=== PATIENT | female | born 1935 | race Hispanic/Latino ===

== ENCOUNTER 2016-10-08 16:12 | Emergency (ER) | payer MEDICARE, OTHER ==
[~2016-10-08] VITALS: Ht 162.6 cm; Wt 104.5 kg
[~2016-10-08 16:12] MED LIST: ADV250INH IH; ALBU18HF INH; AMLO5TAB2 PO; ASPI81TA3 PO; ATOR40TA69 PO; CARV12.5 PO; CHOL5000 PO; CODE118S2 PO; FURO-128 PO; INSU100I SQ; INSU100I13 SUBQ; KLO1T PO; LEVO125T6 PO; LISI40TA PO; NYST1000 PO; OXYC-466 PO; RES30 PO; VENL75CA95 PO; [UNRECOGNIZED DRUG - CODE] PO
[2016-10-08 16:24] VITALS: BP 127/75; PULSE 67; RESP 20; O2SAT 97
--- NOTE | 2016-10-08 17:29 | ED.REPORT ---
HPI-General Illness Date of Service October 08, 2016 ED Provider: Kar Hernandez MD Patient is a 81 year old female with a history asthma, hemorrhoids, COPD, breast cancer (in remission), CHF, type II diabetes mellitus, GERD, hyperlipidemia and hypertension who presents to the ED with hematochezia that began this afternoon. Associated symptoms include recent bladder/bowel incontinence and abdominal pain. Patient noticed a large, quarter sized clump of blood in her stool this morning. She also reports experiencing dizziness and lightheadedness that is unchanged from baseline. Patient currently takes 1 baby aspirin every day. She denies history of colon cancer or GI bleed. She denies nausea or vomiting. Nursing Notes Stated Complaint: BLOOD IN STOOL Chief Complaint: Male Abdominal Pain Nursing Notes Reviewed: Yes Allergies: Coded Allergies: No Known Allergies (Verified , 11/16/15) Scheduled Amlodipine (Amlodipine) 5 Mg Tablet 10 MG PO DAILY Aspirin Chew (Aspirin Chew) 81 Mg Chew 81 MG PO DAILY Atorvastatin Calcium (Atorvastatin Calcium) 40 Mg Tablet 40 MG PO DAILY Carvedilol (Coreg) 12.5 Mg Tablet 12.5 MG PO BID Cholecalciferol (Vitamin D3) (Vitamin D3) 5,000 Unit Capsule 5,000 UNIT PO Q48 every other evening Clonazepam (Clonazepam) 1 Mg Tab 1.5-2 MG PO Q48 Alternate with Temazepam Fluticasone/Salmeterol (Advair 250-50 Diskus) 60 Puff/Inh Disk 1 PUFF IH BID Furosemide (Lasix) 40 Mg Tablet 40 MG PO DAILY Insulin Aspart (NovoLOG U-100 Pen) 100 Unit/Ml Insuln.pen 12-14 UNITS SQ TID- INSULIN Insulin Glargine (Lantus U100 Solostar Insulin Pen) 100 Unit/1 Ml Insuln.pen 40 UNIT SUBQ QPM-INSULIN Levothyroxine (Levothyroxine) 125 Mcg Tablet 125 MCG PO QAM Lisinopril (Lisinopril) 40 Mg Tablet 40 MG PO DAILY Nystatin (Nystatin) 100,000 Unit/1 Ml Oral.susp 100,000 UNIT PO QID Temazepam (Temazepam) 30 Mg Cap 30 MG PO Q48 Alternate with Clonazepam Venlafaxine ER (Venlafaxine ER) 75 Mg Cap.er.24h 75 MG PO QPM Scheduled PRN Albuterol Sulfate (Ventolin HFA Inhaler) 200 Puff/18 Gm Inhaler 1-2 PUFF INH Q4- 6H PRN PRN For Wheezing Promethazine/Codeine Syrup (Promethazine/Codeine Syrup) 5 Ml Syrup 5 ML PO Q4- 6H PRN PRN For Cough oxyCODONE-Acetaminophen 10-325 mg (oxyCODONE-Acetaminophen 10-325 mg) 1 Each Tablet 1 TABLET PO Q8 PRN PRN For Pain Miscellaneous Medications Guaifenesin/Dm/Pseudoephedrine (Tussin Cf Syrup) 118 Ml Syrup 400 MG PO General Time Seen by MD: 16:41 Chief Complaint Other (Bloody Stool) Hx Obtained From: Patient Arrived By: Walk-in Sudden in Onset?: No Onset Occurred: 5 - 8 hours ago Symptom Duration: 1 - 15 minutes Location: : Abdomen Quality: Aching Radiation: : Does not radiate Severity: Current: No pain currently Severity: Maximum: Moderate Associated with: Reports: Abdominal pain, Denies: Nausea, Vomiting Pertinent Negative: Pt denies other symptoms Recent Healthcare: No recent doctor visit, No recent hospitalization Past Medical History Past Medical History Bronchitis Reports: Asthma, COPD, Cancer (Breast), Congestive heart failure, Diabetes mellitus, GERD, Hyperlipidemia, Hypertension Past Surgical History Status post bladder surgery for unknown reason. Status post hysterectomy. Status post knee surgery. Smoking History Former Smoker Social History Alcohol Use: Denies alcohol use Other Social History: Good social support, Local resident Ambulatory Status Independent Review of Systems Full Review of Systems Constitutional: Denies: Chills, Fever GI: Reports: Abdominal pain, Bloody/tarry stool, Hematochezia, Denies: Nausea, Vomiting Female: Reports: Incontinence Complete sys rev & neg: except as marked. Physical Exam Vital Signs Vital Signs Date Time Temp Pulse Resp B/P Pulse Ox O2 Delivery O2 Flow Rate FiO2 10/08/16 19:59 76 16 10/08/16 16:24 36.9 67 20 127/75 97 Room Air Initial VS: Reviewed Neck: Supple, Non-tender, Full range of motion Extremities: Vascular intact, Neuro intact, No swelling, No tenderness Skin: Warm, Dry, No cyanosis Neurologic: Alert, Oriented, Nonfocal Psychiatric: Mood/affect normal, Behavior normal, Normal thought content General/Constitutional: Awake, Alert, No acute distress Head / Eyes: Atraumatic, Normocephalic, PERRL Respiratory / Chest: Atraumatic, Breath sounds NL, Breath sounds = bilat, No respiratory distress Cardiovascular: Heart rate NL, Regular rhythm, Heart sounds NL, No gallop, No murmurs, No rubs, Peripheral circulation NL Abdomen: Atraumatic, Soft, No guarding, No rebound, BS normoactive, No distention Tenderness/Guarding/Rebound: Positive: Tender LLQ..., Negative: Rigid to palpation Rectum / Perineum: Atraumatic, No fissures, Sphincter tone NL (Palpable sphincter on digital rectal exam) Rectal for Blood: Positive: Blood - occult heme + (Brown stool ) Rectum / Perineum Abnl: Positive: Hemorrhoid external, Negative: Hemorrhoid bleeding (No active bleeding ) RECTUM: No melena Interpretation & Diagnostics Lab Results Interpretation Result Diagram: 10/08/165 10/08/165 Test 10/08/16 17:45 White Blood Count 6.2th/mm3 (3.8-10.1) Red Blood Count 4.72mil/mm3 (3.90-5.20) Hemoglobin 13.8g/dL (12.0-15.6) Hematocrit 41.9% (35.0-46.0) Mean Corpuscular Volume 88.8fL (81-100) Mean Corpuscular Hemoglobin 29.2pg (27.0-35.0) Mean Corpuscular Hemoglobin Concent 32.9% (32.0-37.0) Red Cell Distribution Width 13.1% (12.3-15.4) Platelet Count 120bil/L (150-400) Neutrophils (%) (Auto) 48.4% (40-74) Lymphocytes (%) (Auto) 38.5% (14-46) Monocytes (%) (Auto) 8.1% (4-12) Eosinophils (%) (Auto) 4.3% (0-5) Basophils (%) (Auto) 0.5% (0-3) Prothrombin Time 10.3sec (8.1-12.5) Prothromb Time International Ratio 0.96ratio Sodium Level 140mEq/L (134-144) Potassium Level 3.6mEq/L (3.5-5.2) Chloride Level 102mEq/L (97-108) Carbon Dioxide Level 25mmol/L (18-29) Blood Urea Nitrogen 18mg/dL (8-27) Creatinine 1.40mg/dL (0.57-1.00) Estimat Glomerular Filtration Rate 52mL/min (>59) Glucose Level 375mg/dL (60-99) Calcium Level 8.8mg/dL (8.5-10.1) Total Bilirubin 0.5mg/dL (0.0-1.2) Aspartate Amino Transf (AST/SGOT) 31U/L (0-50) Alanine Aminotransferase (ALT/SGPT) 36U/L (0-32) Alkaline Phosphatase 127U/L (25-165) Total Protein 6.9g/dL (6.4-8.4) Albumin 3.5g/dL (3.4-5.0) Hold [place] Top Tube Received (Received) ECG Interpretation ECG Interpretation: Normal sinus rhythm at 64 bpm Normal axis Normal intervals T wave inversion in AVL and lateral leads with boarderline ST depression Compared to prior (11/16/15) - ST depression is slightly more pronounced T wave inversions are not new Time: 17:32 Interpreted by: ED physician CT Abd / Pelvis Interpretation IMPRESSION: 1. No definite acute disease process. 2. Hepatic cysts and renal cysts. 3. Atherosclerosis. 4. No free fluid or air. 5. No dilated loops of bowel. Dictated by: Aspen Solis MD, PhD on 10/08/2016 at 19:27 Study type: Abdominal CT IV contrast, Abdom CT oral contrast Re-Eval/Medical Decision Med Decision/Clinical Course Patient is a 81 year old female with a history asthma, hemorrhoids, COPD, breast cancer (in remission), CHF, type II diabetes mellitus, GERD, hyperlipidemia and hypertension who presents to the ED with hematochezia that began this afternoon. Associated symptoms include recent bladder/bowel incontinence and abdominal pain. Patient noticed a large, quarter sized clump of blood in her stool this morning. She also reports experiencing dizziness and lightheadedness that is unchanged from baseline. Patient currently takes 1 baby aspirin every day. She denies history of colon cancer or GI bleed. She denies nausea or vomiting. Here in the emergency department the patient is afebrile stable vital signs and examination as above. She has mild tenderness to palpation about the left lower quadrant. Rectal examination reveals normal brown stool that is guaiac positive and there is palpable stricturing about the rectum with DAVID. EKG Normal sinus rhythm at 64 bpm Normal axis Normal intervals T wave inversion in AVL and lateral leads with borderline ST depression Compared to prior (11/16/15) - ST depression is slightly more pronounced T wave inversions are not new CT Abd/Pelvis IMPRESSION: 1. No definite acute disease process. 2. Hepatic cysts and renal cysts. 3. Atherosclerosis. 4. No free fluid or air. 5. No dilated loops of bowel. LABS Coag normal Hct 41.9 Hyperglycemia 375 Mild acute kidney injury Creatinine 1.4 elevated from previous of 1.28 Patient remained hemodynamically stable. Reports feeling better after treatment with IV fluids. No melena or active bright red bleeding. Positive rectal bleeding is not completely clear though I wonder if she may be having bleeding as a result of her palpable stricturing of the rectal region. She may also be bleeding from internal hemorrhoids. I cannot definitively rule out other causes of bleeding such as inflammatory bowel disease or mass lesion noticed seems less likely. No evidence of diverticulitis on CT scan. Given her stability and absence of any ongoing bleeding I do not feel that admission for emergent endoscopy is indicated. She is advised to return immediately for any worsening bleeding, lightheadedness or new symptoms. She has been referred to GI and will call first thing tomorrow to arrange an appointment. Prior to discharge follow-up and return precautions were reviewed in detail with the patient as well as her family who verbalized understanding and agreement with the plan. The patient was discharged in stable condition. Time of Eval: 19:41 Patient Status: Condition improved Re-Evaluation/Progress Note: Patient is rechecked. She is informed of her results and diagnosis. All questions are addressed. She understands and agrees with the intended treatment plan. Counseled Regarding: Diagnosis, Lab results, Need for follow-up, When/why to return to ED Discharge & Departure Primary Impression: GI bleed GI bleed type/associated pathology: unspecified gastrointestinal hemorrhage type Qualified Code: K92.2 - Gastrointestinal hemorrhage, unspecified Additional Impressions: Rectal bleeding Left lower quadrant pain Stricture of anal canal Disposition: Home Discharge Condition All VS Reviewed: Yes Condition: Improved Patient Instructions: Gastrointestinal Bleeding (ED) Additional Instructions: Thank you for seeking care at the emergency room. It is difficult for us to make definitive diagnoses in the ED but we believe that you are experiencing a gastrointestinal bleed, however, your labs did not reveal significant blood loss. Our primary goal today in the ED was to evaluate you for any life-threatening conditions. Your evaluation was reassuring and your CT was negative. Call the referred GI physician tomorrow morning to set up an out patient follow up to obtain an endoscopy to help identify the cause of your symptoms. You should return to the ED immediately if you develop any increased blood in your stool, dark stool, worsening pain, lightheadedness, weakness or any other concerning signs or symptoms. Thank you for letting us partake in your care today. Referrals: Azalia Roberto PA-C (PCP) Ammon Yousif MDibaure Attestation Portions of this note were transcribed by Mari Benites. I, Dr. Hernandez personally performed the history, physical exam and medical decision-making; I reviewed and confirmed the accuracy of the information in the transcribed note. Signed by: Edgardo Jama, 10/08/161945. copies to: Azalia Roberto PA-C, Beck O MD October 08, 2016 17:29 MARI BENITES October 08, 2016 17:36
[2016-10-08 18:08] LABS: BASOPHILS % (AUTO) 0.5 % (0-3); EOSINOPHILS % (AUTO) 4.3 % (0-5); MONOCYTES % (AUTO) 8.1 % (4-12); Mean Corpuscular Hemoglobin 29.2 pg (27.0-35.0); Mean Corpuscular Volume 88.8 fL (81-100); NEUTROPHILS % (AUTO) 48.4 % (40-74); Platelet Count 120 bil/L (150-400)
[2016-10-08 18:20] LABS: INR 0.96 ratio
[2016-10-08] MEDS ORDERED: 0.9% Sodium Chloride 1,000 ML IV ONE (19:15)
--- NOTE | 2016-10-08 19:34 | DRSVH ---
PROCEDURE: CT ABDOMEN AND PELVIS WITH CONTRAST ([id number]) INDICATIONS: LLQ pain, bloody stool, diverticulitis? TECHNIQUE: After the administration of intravenous contrast, 5 mm thick sections acquired from the diaphragm to the symphysis. 5 mm coronal and sagittal reformats were acquired. For radiation dose reduction, the following was used: automated exposure control, adjustment of mA and/or kV according to patient tyler looney. COMPARISON: [facility] [place], CT, ABD/PELVIS W/O CON (PNL), 06/11/2014, 19:13. FINDINGS: Image quality: Excellent. ABDOMEN: Lung bases: Lung bases are clear. Heart size is normal. Mitral annulus calcifications noted. Bilate ral breast implants noted. Solid organs: Liver and spleen are normal in size and enhancement. Hepatic cysts are stable. Gallbla dder is contracted. Biliary system is non dilated. Pancreas enhances normally. No adrenal nodules. Kidneys demonstrate normal size and enhancement, without hydronephrosis. Bilateral renal cysts are noted. Peritoneum and bowel: Bowel loops demonstrate normal wall thickness and caliber. No free fluid or a ir. The appendix is not definitely visualized, however no inflammatory changes noted adjacent to the cecum. Nodes and vessels: No retroperitoneal or mesenteric adenopathy by size criteria. Aorta and inferior vena cava are normal in size. Scattered atherosclerotic calcifications are noted in the abdominal an d pelvic vasculature. Miscellaneous: No ventral hernias. PELVIS: Genitourinary: Bladder wall thickness is normal. Miscellaneous: No adenopathy. Small bilateral fat containing inguinal hernia is noted. Bones: No suspicious bony lesions. No vertebral body compression fractures. Spine degenerative dise ase and facet arthropathy noted. IMPRESSION: 1. No definite acute disease process. 2. Hepatic cysts and renal cysts. 3. Atherosclerosis. 4. No free fluid or air. 5. No dilated loops of bowel. Dictated by: Aspen Solis MD, PhD on 10/08/2016 at 19:27 Approved by: Aspen Solis MD, PhD on 10/08/2016 at 19:32
[2016-10-08 19:59] VITALS: PULSE 76; RESP 16
[2016-10-25] MEDS ORDERED: AMLO5TAB2 PO (10:09)
[2016-10-25] MEDS ORDERED: ASPI-973 PO (10:09)
[2016-10-25] MEDS ORDERED: CLOT135C TP (10:12)
[2016-10-25] MEDS ORDERED: GABA-500 PO (10:12)
[2016-10-25] MEDS ORDERED: ALBU90AE IH (10:15)
[2016-10-25] MEDS ORDERED: PREG75CA PO (10:15)
[2016-10-25] MEDS ORDERED: METO100T3 PO (10:15)
[2016-10-25] MEDS ORDERED: LIDO700A33 TOPICAL (10:15)
== END 2016-10-08 20:00 | disposition home or self-care (01) ==
LOC: SED 16:12
DX: K92.2 Gastrointestinal hemorrhage, unspecified (principal); R10.32 Left lower quadrant pain; K62.4 Stenosis of anus and rectum; R42 Dizziness and giddiness; J44.9 Chronic obstructive pulmonary disease, unspecified; I50.9 Heart failure, unspecified; E11.9 Type 2 diabetes mellitus without complications; K21.9 Gastro-esophageal reflux disease without esophagitis; E78.5 Hyperlipidemia, unspecified; I10 Essential (primary) hypertension; J45.909 Unspecified asthma, uncomplicated; K64.9 Unspecified hemorrhoids; Z85.3 Personal history of malignant neoplasm of breast; Z87.891 Personal history of nicotine dependence; Z79.4 Long term (current) use of insulin; Z79.82 Long term (current) use of aspirin
CPT/HCPCS: 36415; 74177; 80053; 85025; 85610; 86850; 93005; 96360; 99285; J7030; Q9967

== ENCOUNTER 2016-10-26 07:23 | Day surgery (SDC) | payer MEDICARE, OTHER ==
[~2016-10-26] VITALS: Ht 162.6 cm; Wt 104.3 kg
[~2016-10-26 07:23] MED LIST changes: -ADV250INH IH; -ALBU18HF INH; +ALBU90AE IH; +ASPI-973 PO; -CARV12.5 PO; +CLOT135C TP; -CODE118S2 PO; -FURO-128 PO; +GABA-500 PO; -KLO1T PO; +LIDO700A33 TOPICAL; +METO100T3 PO; -NYST1000 PO; -OXYC-466 PO; +PREG75CA PO; -RES30 PO; -[UNRECOGNIZED DRUG - CODE] PO
[2016-10-26] MEDS ORDERED: MeTOProlol 1 mg/mL 5 mL Inj ONE (07:24)
[2016-10-26] MEDS ORDERED: Ketamine 10 mg/mL 20 mL Inj ONE (07:24)
[2016-10-26] MEDS ORDERED: Glycopyrrolate 0.2 MG/ML 1mL Inj ONE (07:24)
[2016-10-26] MEDS ORDERED: Lactated Ringer's 1,000 ML IV ONE (07:31)
[2016-10-26 07:42] VITALS: BP 181/80; PULSE 78; RESP 16; O2SAT 96
[2016-10-26] MEDS ORDERED: KLO1T PO (07:49)
[2016-10-26] MEDS ORDERED: Lactated Ringer's 1,000 ML IV SCH (08:04)
--- NOTE | 2016-10-26 08:54 | PCM.ENDEGD ---
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 Scope introduced esophagus. Esophagus showed normal shiny whitish mucosa consistent with squamous cell component. Z line was not intact at 40 cm from the incisors. There was a 2 cm tongue of salmon-colored mucosa. Four-quadrant biopsy obtained. Patient also had some irritation and biopsies obtained as well. Narrow banding used. These were placed in the same bottle. Scope further advanced to the stomach. The stomach from the antrum to body showed blunted rugae folds some atrophy and redness consistent with gastritis.. Cardia fundus body antrum pylorus were all visualized. Retroflexion was done. Stomach was easily inflated and deflatable using air. Scope further advanced to the distal duodenum. Duodenum revealed normal villous structures with normal appearing folds without any mass ulcer erosion. However the mucosa itself seemed to be little bit irritated with edema and minimal redness. Biopsies obtained. 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 Patient monitoring Continuous pulse oximetry, cardiac monitoring, blood pressure monitoring, IV access, and oxygen at 2L per nasal cannula. Complications There were no periprocedural complications identified. Post Procedure Plan Post Procedure Recommendations 1. Restrict activities today. 2. Resume normal activities in the morning. 3. Resume medications. 4. GERD behavioral modification: - Avoid fatty, acidic, spicy, large meals - Do not lie down after meals - Do not eat or drink anything for at least 2 1/2 hours before going to bed at night - Discontinue tobacco and alcohol - Decrease or avoid caffeine - Avoid chocolate and mints - Decrease weight - Avoid aspirin and non steroidal anti-inflammatory agents (NSAID) such as Aleve, Advil, Mobic, Naproxen, Ibuprofen, etc 5. Add proton pump inhibitor. Take 30 minutes before 1st meal of the day. 6. Patient informed of normal post procedure side effects as bloating, drowsiness, blood streaking in the stool 7. If gastric biopsy reveal H.pylori, continue with appropriate treatment 8. If small bowel biopsy reveals celiac, continue with appropriate treatment 9. Please don't hesitate to call me with any questions Dagoberto Hawk MD Oct 26, 2016 08:54
--- NOTE | 2016-10-26 08:56 | PCM.ENDCOL ---
Colonoscopy Date of Service: Oct 26, 2016 Physician Dagoberto Hawk MD Pre Procedure Diagnosis: Screening abdominal pain Post Procedure Dx & Findings: Screening abdominal pain Procedure Colonoscopy PROCEDURE IN DETAIL: Prep adequate Withdrawal time 12 minutes After unremarkable rectal examination the Olympus video colonoscope was inserted patient's anal canal and was advanced to cecum. Landmarks were identified including the ileocecal valve and appendiceal orifice. Scope was advanced to the terminal ileum. Terminal ileum showed normal villous structures without ulcer or mass erosions Scope was withdrawn systematically. Visualized colonic mucosa showed healthy shiny mucosa with normal healthy- appearing vasculature. Indications transverse colon, there were 2 polyps. These were 1 cm in size. There were both resected completely using cold forceps. In the rectosigmoid area, there were 2 polyps. One was a millimeter in size. This was removed completely using cold forceps. The other one was 2 mm in size which was removed completely using cold snare. However we are not able to retrieve the 2 mm polyp. Patient passed gas and it disappeared. Patient had multiple diverticulitiin the sigmoid colon and we have isolated one all the way up to the proximal transverse colon In the rectum retroflexion was done which showed hemorrhoids. Anal canal was inspected carefully on the way out and hemorrhoids noted. Impression Polyps 4 status post complete removal. The 2 mm polyp was lost when patient suddenly Pass gas. Diverticuli Hemorrhoids Recommendation Repeat colonoscopy 3 years Diverticula diet Presedation Assessment Risks and Benefits Informed consent was obtained from the patient after all risks and benefits including but not limited to drug reaction, infection, pain, bleeding, perforation, as well as alternatives were discussed. Patient monitoring Continuous pulse oximetry, cardiac monitoring, blood pressure monitoring, IV access, and oxygen at 2L per nasal cannula. Complications There were no periprocedural complications identified. Post Procedure Plan Post Procedure Recommendations 1. Restrict activities today. 2. Resume normal activities in the morning. 3. Resume medications. 4. Patient informed of normal post procedure side effects as bloating, drowsiness, blood streaking in the stool. 5. average risk CRCS. If colon polyps come back as: -Hyperplastic- can repeat colonoscopy in 10 years -Tubular adenoma- repeat colonoscopy in 5 years -Tubulovillous/villous adenoma- repeat colonoscopy in 3 years -If any dysplasia- return to clinic as soon as possible 6. Please don't hesitate to call me with any questions. Dagoberto Hawk MD Oct 26, 2016 08:56
[2016-10-26 08:58] VITALS: BP 143/83; PULSE 79; RESP 12
[2016-10-26 09:08] VITALS: BP 173/85; PULSE 78; RESP 12; O2SAT 100
[2016-10-26 09:35] VITALS: BP 167/74; PULSE 64; RESP 14; O2SAT 99
--- NOTE | 2016-10-26 11:17 | PCM.HPANE ---
Patient Data Surgeon Admitting Provider: Attending Provider:Dagoberto Hawk MD Primary Care Physician:Azalia Roberto PA-C Other Provider:[facility] Reason for Visit Black Stool Ht/WT & BMI Height (Feet): 5 Height (Inches): 4 Weight (Kilograms): 104.33 Body Mass Index 39.00 Allergies Coded Allergies: phenylephrine (Verified Allergy, Severe, Hallucinations, 10/25/16) TAPE (Verified Allergy, Unknown, Rash, 10/25/16) chlorpheniramine (Verified Allergy, Unknown, Hallucinations, 10/25/16) codeine (Verified Allergy, Unknown, Hallucinations, 10/25/16) latex (Verified Allergy, Unknown, Rash, 10/25/16) ezetimibe (Verified Adverse Reaction, Unknown, 10/25/16) ACHES Past Anesthesia History Anesthesia History: Denies:: Abnormal Airway, Anesthesia Reactions, Difficult Intubation, Fam Anesthesia Reaction, Fam Malignant Hypertherm, Malignant Hyperthermia Diabetes History Hx Diabetes?: Yes Current Bedside Blood Glucose: 302 MRSA MRSA: No Medications Blood Thinner: Aspirin Last Dose Blood Thinner: Oct 25, 2016 Home Meds Incl Beta Wero: Yes Date Beta Wero Taken: Oct 25, 2016 Time Beta Wero Taken: 2100 Reported Medications Clonazepam 1 Mg Tablet1 Mg PO DAILY PRN For Anxiety Ref 0 10/26/16 Albuterol Sulfate (Proair Respiclick)90 Mcg Aer.pow.ba90 Mcg IH EVERY 4-6 10/25/16 Metoprolol Tartrate 100 Mg Fttfvx444 Mg PO BID 30 Days Ref 0 10/25/16 Lidocaine 700 Mg Adh..bepuy685 Mg TOPICAL DAILY 10/25/16 Gabapentin 100 Mg Utposxb701 Mg PO HS 30 Days Ref 0 10/25/16 Clotrimazole/Betameth Dip/Zinc (Dermacinrx Therazole Juni)1 %-0.05 %-20 % Combo..gpl039 Gm TP BID 10/25/16 Aspirin 81 Mg Fuvaib61 Mg PO DAILY Ref 0 10/25/16 Amlodipine 5 Mg Tablet5 Mg PO DAILY Ref 0 10/25/16 Levothyroxine 125 Mcg Ukbvfg615 Mcg PO QAM For Thyroid Replacement 06/13/14 Cholecalciferol (Vitamin D3) (Vitamin D3)5,000 Unit Capsule5,000 Unit PO Q48 every other evening 06/12/14 Insulin Glargine (Lantus U100 Solostar Insulin Pen)100 Unit/1 Ml Insuln.pen40 Unit SUBQ QPM-INSULIN 06/11/14 Insulin Aspart (NovoLOG U-100 Pen)100 Unit/Ml Insuln.cmx71-99 Units SQ TID- INSULIN 06/11/14 Venlafaxine ER 75 Mg Cap.er.24h75 Mg PO QPM 06/11/14 Atorvastatin Calcium 40 Mg Ojhbch27 Mg PO DAILY 06/11/14 Lisinopril 40 Mg Fhlzmb47 Mg PO DAILY 06/11/14 Discontinued Reported Medications Pregabalin (Lyrica)75 Mg Wsqpook15 Mg PO BID 30 Days Ref 0 10/25/16 Aspirin Chew 81 Mg Chew81 Mg PO DAILY Ref 0 06/30/15 Guaifenesin/Dm/Pseudoephedrine (Tussin Cf Syrup)118 Ml Soyxm920 Mg PO 07/01/15 Promethazine/Codeine Syrup 5 Ml Syrup5 Ml PO Q4-6H PRN For Cough 06/11/14 Albuterol Sulfate (Ventolin HFA Inhaler)200 Puff/18 Gm Inhaler1-2 Puff INH Q4- 6H PRN For Wheezing 06/11/14 Fluticasone/Salmeterol (Advair 250-50 Diskus)60 Puff/Inh Disk1 Puff IH BID 06/11/14 oxyCODONE-Acetaminophen 10-325 mg 1 Each Tablet1 Tablet PO Q8 PRN For Pain 06/11/14 Temazepam 30 Mg Cap30 Mg PO Q48 For Insomnia Alternate with Clonazepam 06/11/14 Clonazepam 1 Mg Tab1.5-2 Mg PO Q48 For Anxiety Alternate with Temazepam 06/11/14 Discontinued Scripts Nystatin 100,000 Unit/1 Ml Oral.hfbn332,000 Unit PO QID #1 BOTTLE Ref 0 Prov:Leo Phillips DO 07/01/15 Furosemide (Lasix)40 Mg Nwcwzo16 Mg PO DAILY 30 Days Ref 0 Prov:Jarrell Yepez MD 06/27/15 Carvedilol (Coreg)12.5 Mg Iddilv40.5 Mg PO BID #60 TABLET Ref 0 Prov:Jarrell Yepez MD 06/27/15 Amlodipine 5 Mg Opkkyd55 Mg PO DAILY #30 TABLET Prov:Jarrell Yepez MD 06/27/15 History History of ENT Problems?: No HEENT History: Positive for:: Cataracts (cataract surgery. 2012) Denies:: Abnormal Airway Difficult Intubation Dysphagia Hearing Problem Sinus Problem Denture Type: None Teeth Condition: Within Normal Limits Hx of Heart Problems?: Yes Cardiovascular History: Positive for:: Congestive Heart Failure Heart Murmur Hypertension Denies:: AICD Abdominal Aortic Aneurism Atrial Fibrillation Cardiac Surgery Chest Pain Coronary Artery Disease Edema Irregular Heartbeat Pacemaker Peripheral Vascular Rheumatic Fever Thrombophlebitis Valvular Heart Disease Hx of Respiratory Problem?: Yes Respiratory History: Positive for:: Asthma COPD Dyspnea Emphysema Pneumonia Denies:: Chest Surgery Cough Hemoptysis Oxygen Administration Pulmonary Embolism Tuberculosis Use of C-PAP Machine Use of Inhalers / NEBS Hx Neurologic Problems?: No Neurological History: Positive for:: Dizziness (frequent falls) Denies:: Alzheimer's Disease CVA Dementia (daughter states yes) Headaches Multiple Sclerosis Parkinson's Disease Peripheral Neuropathy Seizures TIA Hx of GI Problems?: Yes Gastrointestinal History: Denies:: Cirrhosis Diverticulitis Gall Bladder Disease Gastroesphageal Reflux Gastrointestinal Bleeding Heartburn Hepatitis Hiatal Hernia Liver Disease Rectal Bleeding Hx of Problems?: No Genitourinary History: Denies:: HX of Hemodialysis Kidney Stones Urinary Tract Infection HX of Peritoneal Dialysis: No Female Hx: Denies:: Currently Endometriosis Pelvic Inflammatory Problems with Breasts? (states breast ca last year had radiation) Skin History: Denies:: History Skin Disorders? Pressure Ulcers Hx Musculoskeletal Problems?: Yes Musculoskeletal History: Positive for:: Joint Replacement (BILAT TKA) Denies:: Back Injury Degenerative Joint Fibromyalgia Musculoskeletal Trauma Myasthenia Gravis Osteoarthritis Rheumatoid Arthritis Systemic Lupus Hx of Psycho/Social Problems?: Yes Psycho Social History: Positive for:: Anxiety Hx Depression Denies:: Bipolar Disorder Suicide Attempt Hx Surgeries?: Yes (TONILS, APPY, HYSTO, BILAT TKA, HH REPAIR,) Hx Any Other Health Problems?: Yes Other History: Positive for:: Cancer (breast CA; Rad 04/03) Hospitalization Thyroid Disease Denies:: Endocrine Disease History Blood Transfusions: Denies:: Blood Transfuse Reaction Blood Transfusions Hx Diabetes: YesBedside Blood Glucose: 302 Hx Alcohol Use: NoHx Substance Use: No Smoking Status: Former Smoker Have You Smoked inLast 12 mo: No Stop/Bang Treated for Sleep Apnea?: Yes Do You Have a CPAP Machine?: No (NON-COMPLIANT WITH USE) Risk Assessment Category Category 1A: Patient has history of documented sleep apnea, and HAS NOT received any narcotic, sedative or anesthesia administration during this stay. Category 1B: Patient has history of documented sleep apnea, and HAS received any narcotic , sedative or anesthesia administration during this stay Category 2: Patient has SUSPECTED Obstructive Sleep Apnea, and HAS received any narcotic , sedative or anesthesia administration during this stay. Category 3: Patient has SUSPECTED Obstructive Sleep Apnea and HAS NOT received narcotic, sedative or anesthesia administration during this stay. Category 4: Outpatient in Procedural Areas with known sleep apnea or who screen positive for High Risk via the STOP/BANG questionnaire. Exam Exam Vital Signs Vital Signs Date Time Temp Pulse Resp B/P Pulse Ox O2 Delivery O2 Flow Rate FiO2 10/26/16 07:42 36.4 78 16 181/80 96 Room Air General Appearance: Alert, Oriented X3, Cooperative, No Acute Distress HEENT/AIRWAY: MP 2, Neck Movement (FROM), Mouth Opening (3 FBMO) Lungs: Normal Air Movement Heart: Regular Rate/Rhythm Meds/Labs/Diagnostics Admission Meds Current Medications Lactated Ringer's (Lr) 1,000 ml @ 10 mls/hr Q24H ONCE IV Last administered on 10/26/16t 07:59; Start 10/26/16 at 07:31; Stop 10/27/16 at 07:30 Bedside Blood Glucose: 302 Plan Impression Patient chart reviewed, patient interviewed and anesthestic plan with risks, benefits, and alternatives discussed, and informed consent obtained. NPO per Anesth. Guidelines: Yes ASA Physical Status: ASA3 Severe Disease (BMI 40, COPD) Anesthetic Plan: GA, MAC Bene/Risks/Altern/Consents: Yes HP Complete Prior to Induction: Yes Chris Aguiar MD Oct 26, 2016 08:04
--- NOTE | 2016-10-26 11:17 | PCM.ANEP1 ---
Post Anesthesia PACU Phase 1 Assessment Vital Signs Vital Signs Date Time Temp Pulse Resp B/P Pulse Ox O2 Delivery O2 Flow Rate FiO2 10/26/16 09:35 64 14 167/74 99 Room Air 10/26/16 09:08 78 12 173/85 100 Room Air 10/26/16 08:58 79 12 143/83 Room Air 10/26/16 07:42 36.4 78 16 181/80 96 Room Air Anesthetic Administered: GA, MAC Level of Alertness: Awake, talking ARCE's with Equal Strength: Yes Pain: No Nausea or Vomiting: No CV Function & Hydration Stable: No Airway Device: Oxygen Delivery: Room Air Lungs: Normal Air Movement Dermatome Level: Full Sensation PACU Phase 2 Assessment Complications: No Follow up Care: N/A Patient Instructions Provided: N/A Chris Aguiar MD Oct 26, 2016 11:17
--- NOTE | 2016-10-27 10:19 | PATH ---
SURGICAL PATHOLOGY Attending Physician:Dagoberto Hawk M.D. CASE STATUS: Signed Out PATIENT NAME: BAYRON PURI PID: [id number] : 1935 DATE COLLECTED:10/26/2016 17:37 SPECIMEN: 1: Duodenum, Biopsy 2: Gastric, Biopsy 3: Esophagus, Biopsy 4: Colon, Biopsy 5: Colon, Biopsy CLINICAL HISTORY: 1). DUODENAL BIOPSY 2). GASTRIC BIOPSY 3). GASTRO-ESOPHAGEAL JUNCTION BIOPSY 4). TRANSVERSE POLYP X2 5). RECTO-SIGMOID POLYP X2 FINAL DIAGNOSIS: 1.DUODENAL BIOPSY: CHANGES OF CHRONIC DUODENITIS WITH AREAS OF FOVEOLAR METAPLASIA. Negative for evidence of celiac disease. Negative for dysplasia and malignancy. 2.GASTRIC BIOPSY: MILD CHRONIC GASTRITIS INVOLVING FUNDIC MUCOSA. Negative for evidence of Helicobacter by H&E stain Negative for intestinal metaplasia. Negative for dysplasia and malignancy. 3.GASTROESOPHAGEAL JUNCTION BIOPSY: SQUAMOUS MUCOSA AND GASTRIC CARDIA-TYPE MUCOSA NEGATIVE FOR SPECIALIZED METAPLASIA OF HINDS' S-TYPE ESOPHAGUS. CHRONIC INFLAMMATION WITH REACTIVE EPITHELIAL CHANGES AND RARE SQUAMOUS INTRAEPITHELIAL EOSINOPHILS CONSISTENT WITH CHRONIC REFLUX. Negative for dysplasia and malignancy. 4.TRANSVERSE COLON POLYPS: TUBULAR ADENOMA INVOLVING SINGLE BIOPSY FRAGMENT. POLYPOID-SHAPED FRAGMENT OF COLON MUCOSA ASSOCIATED WITH PROMINENT MUCOSAL LYMPHOID AGGREGATE. 5.RECTOSIGMOID POLYP: HYPERPLASTIC POLYP. ICD10 D12.4 GROSS DESCRIPTION: The specimen is received in five formalin filled containers labeled with the patient's name. 1). The specimen is sublabeled "duodenal" and consists of 2 portions of tissue which aggregate to 0.2 x 0.2 x 0.2 CM. The specimen is entirely submitted in cassette 1A. 2). The specimen is sublabeled "gastric" and consists of 2 portions of tissue which aggregate to 0.3 x 0.3 x 0.2 CM. The specimen is entirely submitted in cassette 2A. 3). The specimen is sublabeled " GEJ " and consists of 3 portions of tissue which aggregate to 0.3 x 0.3 x 0.2 CM. The specimen is entirely submitted in cassette 3A. 4). The specimen is sublabeled "transverse polyp" and consists of 2 portions of tissue which aggregate to 0.3 x 0.3 x 0.3 CM. The specimen is entirely submitted in cassette 4A. 5). The specimen is sublabeled "recto sigmoid" and consists of a 0.2 x 0.2 x 0.1 CM portion of tissue which is entirely submitted in cassette 5A. 10/26/2016 DAC MICRO DESCRIPTION: See diagnosis. ICD-9 CODES: CPT CODES: 1: 98546 2: 58969 3: 48998 4: 05544 5: 54243 Electronically Signed Out Frank Harris MD [facility] [address], [place] [address] Technical component performed at [facility], [address], [place], [address]
== END 2016-10-26 23:59 | disposition home or self-care (01) ==
LOC: END 23:59
PROVIDERS: ATTEND Internal Medicine
DX: K92.1 Melena (principal); D12.3 Benign neoplasm of transverse colon; K62.1 Rectal polyp; K21.9 Gastro-esophageal reflux disease without esophagitis; K29.80 Duodenitis without bleeding; K29.70 Gastritis, unspecified, without bleeding; K57.90 Diverticulosis of intestine, part unspecified, without perforation or abscess without bleeding; K64.9 Unspecified hemorrhoids; E11.9 Type 2 diabetes mellitus without complications; Z79.84 Long term (current) use of oral hypoglycemic drugs; J44.9 Chronic obstructive pulmonary disease, unspecified; J45.909 Unspecified asthma, uncomplicated; G47.33 Obstructive sleep apnea (adult) (pediatric); I50.9 Heart failure, unspecified
CPT/HCPCS: 43239; 45380; 45385; 88305; J7120